=== PATIENT | male | born 1955 | race African-American/Black ===

== ENCOUNTER 2019-03-06 18:40 | Emergency (ER) | payer MEDICAID ==
[~2019-03-06] VITALS: Ht 185.4 cm; Wt 135.0 kg
[~2019-03-06 18:40] MED LIST: ASPI-1497 PO
[2019-03-06 23:29] LABS: BASOPHILS % 1.4 % (0.0-2.0); CHLORIDE 107 mEq/L (98-107); EOSINOPHILS % 2.6 % (0.0-5.0); HEMATOCRIT. 42.8 % (42.0-52.0); HEMOGLOBIN. 14.6 g/dL (14.0-18.0); LYMPHOCYTES % 26.9 % (20.0-50.0); MEAN CORPUSCULAR HEMOGLOBIN 33.3 pg (28.0-32.0); MEAN CORPUSCULAR VOLUME 97.9 fL (80.0-94.0); MEAN PLATELET VOLUME 7.8 fl (7.4-10.4); MONOCYTES % 11.5 % (2.0-8.0); NEUTROPHILS % 57.6 % (40.0-76.0); PLATELET 222 x1000/uL (130-400); RED BLOOD CELL COUNT 4.37 mill/uL (4.7-6.1); RED CELL DISTRIBUTION WIDTH 14.7 % (11.6-14.6)
[2019-03-07] MEDS ORDERED: FUROSEMIDE 40MG TABLET PO NR (00:30)
[2019-03-07] MEDS ORDERED: LABETALOL HCL 20MG/4ML CARPUJECT IV ONE (00:30)
[2019-03-07] MEDS ORDERED: LABETALOL 5MG/ML SYR 20 MG/4 ML SYRINGE IV NR (00:45)
[2019-03-07] MEDS ORDERED: IOHEXOL-350 100 ML BOTTLE ONE (04:53)
[2019-03-07 06:00] VITALS: BP 166/110
== END 2019-03-07 06:09 | disposition left against medical advice (07) ==
LOC: ER 18:40 → EDBEDREQTM 03-07 04:12 → EDBEDREQ 03-07 04:12 → ER 03-07 06:09 → CANBEDREQ 03-07 06:57
DX: I11.0 Hypertensive heart disease with heart failure (principal); I50.9 Heart failure, unspecified; J44.9 Chronic obstructive pulmonary disease, unspecified; F12.10 Cannabis abuse, uncomplicated; F17.200 Nicotine dependence, unspecified, uncomplicated; Z79.82 Long term (current) use of aspirin
CPT/HCPCS: 36415; 71045; 71275; 74174; 80053; 83880; 84484; 85025; 93005; 96374; 99284; J3490; Q9967; Z7610

== ENCOUNTER 2020-01-13 12:54 | Emergency (ER) | payer MEDICAID ==
[~2020-01-13] VITALS: Ht 185.4 cm; Wt 131.0 kg
[2020-01-13 16:33] LABS: HEMATOCRIT. 44.1 % (42.0-52.0); HEMOGLOBIN. 15.1 g/dL (14.0-18.0); LYMPHOCYTES % 28.4 % (20.0-50.0); MEAN CORPUSCULAR VOLUME 96.6 fL (80.0-94.0); MEAN PLATELET VOLUME 8.1 fl (7.4-10.4); MONOCYTES % 9.5 % (2.0-8.0); NEUTROPHILS % 56.1 % (40.0-76.0); PLATELET 214 x1000/uL (130-400); RED BLOOD CELL COUNT 4.56 mill/uL (4.7-6.1); RED CELL DISTRIBUTION WIDTH 14.6 % (11.6-14.6)
[2020-01-13 16:40] LABS: CHLORIDE 104 mEq/L (98-107)
[2020-01-13 16:50] VITALS: BP 181/107
[2020-01-13] MEDS ORDERED: HEPARIN 25,000 UNITS PREMIX 250 ML IV SCH (17:00)
[2020-01-13] MEDS ORDERED: ASPIRIN 81MG TABLET PO ONE (17:15)
== END 2020-01-13 17:00 | disposition left against medical advice (07) ==
LOC: ER 12:54
DX: I73.9 Peripheral vascular disease, unspecified (principal); F12.10 Cannabis abuse, uncomplicated; I11.0 Hypertensive heart disease with heart failure; I50.9 Heart failure, unspecified; J44.1 Chronic obstructive pulmonary disease with (acute) exacerbation
CPT/HCPCS: 36415; 80053; 83735; 83880; 85025; 93970; 99284

== ENCOUNTER 2020-01-15 16:44 | Emergency (ER) | payer MEDICAID ==
[~2020-01-15] VITALS: Ht 188 cm; Wt 127.0 kg
[2020-01-15 18:09] LABS: BASOPHILS % 0.8 % (0.0-2.0); EOSINOPHILS % 5.2 % (0.0-5.0); HEMATOCRIT. 44.8 % (42.0-52.0); HEMOGLOBIN. 15.2 g/dL (14.0-18.0); LYMPHOCYTES % 27.9 % (20.0-50.0); MEAN CORPUSCULAR HEMOGLOBIN 32.7 pg (28.0-32.0); MEAN CORPUSCULAR VOLUME 96.5 fL (80.0-94.0); MEAN PLATELET VOLUME 7.7 fl (7.4-10.4); MONOCYTES % 9.7 % (2.0-8.0); NEUTROPHILS % 56.4 % (40.0-76.0); PLATELET 257 x1000/uL (130-400); RED BLOOD CELL COUNT 4.64 mill/uL (4.7-6.1); RED CELL DISTRIBUTION WIDTH 14.7 % (11.6-14.6)
[2020-01-15 18:14] LABS: CHLORIDE 106 mEq/L (98-107)
[2020-01-15 18:29] LABS: INR 1.1; PROTHROMBIN TIME 11.4 sec (9.6-11.0)
[2020-01-15] MEDS ORDERED: HEPARIN 25,000 UNITS PREMIX 250 ML IV PRN (20:45)
[2020-01-15] MEDS ORDERED: HEPARIN 5000 UNITS/ML VIAL IV SCH (20:45)
[2020-01-15] MEDS ORDERED: HEPARIN 5000 UNITS/ML VIAL IV PRN ×4 (20:45→21:56)
[2020-01-15] MEDS ORDERED: IOHEXOL-350 100 ML BOTTLE ONE (23:12)
[2020-01-16] MEDS ORDERED: DILTIAZEM HCL 120MG CAPSULE CD 24HR PO ONE (04:45)
[2020-01-16 08:00] VITALS: BP 156/101
== END 2020-01-16 09:08 | disposition short-term general hospital (02) ==
LOC: ER 16:44 → CANRESERV 01-16 08:56 → ENRESERV 01-16 08:56 → ER 01-16 09:08 → CANBEDREQ 01-16 09:17
DX: I77.1 Stricture of artery (principal); I11.0 Hypertensive heart disease with heart failure; I50.9 Heart failure, unspecified; I48.91 Unspecified atrial fibrillation; J44.9 Chronic obstructive pulmonary disease, unspecified; E78.00 Pure hypercholesterolemia, unspecified; F12.10 Cannabis abuse, uncomplicated; Z79.82 Long term (current) use of aspirin
CPT/HCPCS: 36415; 71045; 72191; 73706; 80053; 84484; 85025; 85610; 85730; 93005; 93923; 96365; 96375; 99285; J1644; Q9967

== ENCOUNTER 2020-05-02 08:54 | Emergency (ER) | payer MEDICAID ==
[~2020-05-02] VITALS: Ht 185.4 cm; Wt 134.0 kg
[2020-05-02] MEDS ORDERED: FUROSEMIDE 40MG/4ML VIAL IVP ONE (09:30)
[2020-05-02 09:49] LABS: BASOPHILS % 0.7 % (0.0-2.0); EOSINOPHILS % 1.4 % (0.0-5.0); HEMATOCRIT. 43.8 % (42.0-52.0); HEMOGLOBIN. 14.4 g/dL (14.0-18.0); LYMPHOCYTES % 23.7 % (20.0-50.0); MEAN CORPUSCULAR VOLUME 100.1 fL (80.0-94.0); MEAN PLATELET VOLUME 8.5 fl (7.4-10.4); MONOCYTES % 8.9 % (2.0-8.0); NEUTROPHILS % 65.3 % (40.0-76.0); PLATELET 170 x1000/uL (130-400); RED BLOOD CELL COUNT 4.37 mill/uL (4.7-6.1); RED CELL DISTRIBUTION WIDTH 16.9 % (11.6-14.6)
[2020-05-02 10:22] LABS: INR 1.1; PROTHROMBIN TIME 11.9 sec (9.6-11.0)
[2020-05-02 11:25] LABS: CHLORIDE 108 mEq/L (98-107)
[2020-05-02 12:30] VITALS: BP 193/111
== END 2020-05-02 12:40 | disposition left against medical advice (07) ==
LOC: ER 09:28 → CANBEDREQ 12:26 → ER 12:40
DX: I11.0 Hypertensive heart disease with heart failure (principal); I50.9 Heart failure, unspecified; F17.290 Nicotine dependence, other tobacco product, uncomplicated; F12.10 Cannabis abuse, uncomplicated; Z88.6 Allergy status to analgesic agent
CPT/HCPCS: 36415; 71045; 80053; 83880; 84484; 85025; 85610; 93005; 96374; 99284; J1940

== ENCOUNTER 2020-05-10 15:47 | Emergency (ER) | payer MEDICAID ==
[~2020-05-10] VITALS: Ht 188 cm; Wt 127.0 kg
[2020-05-10] MEDS: ONDANSETRON HCL 4MG/2ML INJ IV STA ×2 (16:52→18:54)
[2020-05-10 17:43] LABS: EOSINOPHILS % 1.5 % (0.0-5.0); HEMOGLOBIN. 16.4 g/dL (14.0-18.0); LYMPHOCYTES % 24.4 % (20.0-50.0); MEAN CORPUSCULAR HEMOGLOBIN 33.2 pg (28.0-32.0); MEAN CORPUSCULAR VOLUME 99.3 fL (80.0-94.0); MEAN PLATELET VOLUME 8.5 fl (7.4-10.4); MONOCYTES % 9.5 % (2.0-8.0); NEUTROPHILS % 63.6 % (40.0-76.0); PLATELET 196 x1000/uL (130-400); RED BLOOD CELL COUNT 4.93 mill/uL (4.7-6.1)
[2020-05-10 17:45] LABS: CHLORIDE 103 mEq/L (98-107)
[2020-05-10 17:50] LABS: CLARITY URINE CLEAR (CLEAR); COLOR URINE DARK YELLOW (YELLOW); KETONES URINE TRACE (NEGATIVE); LEUKOCYTE ESTERASE URINE TRACE (NEGATIVE); NITRITE URINE NEGATIVE (NEGATIVE); OCCULT BLOOD URINE NEGATIVE (NEGATIVE); PROTEIN URINE 1+ (NEGATIVE); SPECIFIC GRAVITY URINE 1.029 (1.005-1.030)
[2020-05-10 17:52] LABS: INR 1.1; PROTHROMBIN TIME 11.6 sec (9.6-11.0)
[2020-05-10] MEDS: SODIUM CHLORIDE 0.9% 1,000 ML IV ONE ×2 (18:49→18:54)
[2020-05-10] MEDS: KETOROLAC 30MG/ML VIAL IV STA ×2 (18:49→18:54)
[2020-05-10] MEDS ORDERED: ONDANSETRON 4MG ODT PO ONE (19:00)
[2020-05-10] MEDS ORDERED: KETOROLAC 60MG/2ML VIAL IM ONE (19:00)
[2020-05-10] MEDS ORDERED: VISCOUS LIDOCAINE 2% 15 ML UDC PO STA (20:25)
[2020-05-10] MEDS ORDERED: MAGNESIUM/ALUMINUM HYDROXIDE/SIMETHICONE 30ML UDC PO STA (20:25)
[2020-05-10] MEDS ORDERED: DICYCLOMINE 10 MG/5 ML ORAL SYR PO STA (20:25)
[2020-05-10] MEDS ORDERED: OMEP40CA12 MT (20:26)
[2020-05-10 20:44] VITALS: BP 159/91
== END 2020-05-10 21:03 | disposition home or self-care (01) ==
LOC: ER 15:47
DX: R10.33 Periumbilical pain (principal); I11.0 Hypertensive heart disease with heart failure; I50.9 Heart failure, unspecified; F12.10 Cannabis abuse, uncomplicated; Z79.82 Long term (current) use of aspirin
CPT/HCPCS: 36415; 74176; 80053; 81003; 83690; 85025; 85610; 93005; 96372; 99285; C1893; J1885; J2405; J7030; Q0162; Z7610

== ENCOUNTER 2020-09-14 07:12 | Emergency (ER) | payer MEDICAID ==
[~2020-09-14] VITALS: Ht 182.9 cm; Wt 122.0 kg
[~2020-09-14 07:12] MED LIST changes: +OMEP40CA12 MT
[2020-09-14] MEDS ORDERED: ASPIRIN 81MG TABLET PO ONE (08:00)
[2020-09-14 08:24] LABS: BASOPHILS % 0.8 % (0.0-2.0); EOSINOPHILS % 2.3 % (0.0-5.0); HEMATOCRIT. 40.9 % (42.0-52.0); HEMOGLOBIN. 13.7 g/dL (14.0-18.0); LYMPHOCYTES % 18.9 % (20.0-50.0); MEAN CORPUSCULAR HEMOGLOBIN 33.5 pg (28.0-32.0); MEAN PLATELET VOLUME 7.4 fl (7.4-10.4); MONOCYTES % 8.7 % (2.0-8.0); NEUTROPHILS % 69.3 % (40.0-76.0); PLATELET 221 x1000/uL (130-400); RED BLOOD CELL COUNT 4.09 mill/uL (4.7-6.1); RED CELL DISTRIBUTION WIDTH 15.2 % (11.6-14.6)
[2020-09-14 08:31] LABS: CHLORIDE 108 mEq/L (98-107)
[2020-09-14 08:36] LABS: ETHANOL BLOOD < 10 mg/dL
[2020-09-14] MEDS ORDERED: FUROSEMIDE 40MG/4ML VIAL IVP ONE (09:00)
[2020-09-14 09:21] VITALS: BP 155/99
== END 2020-09-14 11:34 | disposition left against medical advice (07) ==
LOC: ER 07:12 → CANBEDREQ 11:17 → ER 11:34
DX: I11.0 Hypertensive heart disease with heart failure (principal); I50.9 Heart failure, unspecified; F12.10 Cannabis abuse, uncomplicated
CPT/HCPCS: 36415; 71045; 80053; 80320; 83880; 84484; 85025; 93005; 96374; 99285; J1940; Z7610; G0480

== ENCOUNTER 2020-10-17 11:03 | Emergency (ER) | payer MEDICAID ==
[~2020-10-17] VITALS: Ht 185.4 cm; Wt 123.0 kg
[~2020-10-17 11:03] MED LIST changes: -OMEP40CA12 MT; +OMEP40CA20 MT
[2020-10-17 13:18] LABS: BASOPHILS % 1.4 % (0.0-2.0); EOSINOPHILS % 3.2 % (0.0-5.0); HEMATOCRIT. 39.5 % (42.0-52.0); HEMOGLOBIN. 13.3 g/dL (14.0-18.0); LYMPHOCYTES % 25.6 % (20.0-50.0); MEAN CORPUSCULAR HEMOGLOBIN 32.9 pg (28.0-32.0); MEAN CORPUSCULAR VOLUME 97.7 fL (80.0-94.0); MEAN PLATELET VOLUME 7.5 fl (7.4-10.4); MONOCYTES % 10.9 % (2.0-8.0); NEUTROPHILS % 58.9 % (40.0-76.0); PLATELET 223 x1000/uL (130-400); RED BLOOD CELL COUNT 4.04 mill/uL (4.7-6.1); RED CELL DISTRIBUTION WIDTH 14.6 % (11.6-14.6)
[2020-10-17 13:25] LABS: CHLORIDE 108 mEq/L (98-107)
[2020-10-17] MEDS ORDERED: FUROSEMIDE 20MG/2ML VIAL IVP ONE ×2 (14:45→15:15)
[2020-10-17] MEDS ORDERED: HYDRALAZINE 20MG/ML VIAL IV ONE ×2 (14:45→15:15)
[2020-10-17] MEDS ORDERED: MORPHINE SULFATE 4 MG/ML CPJ (NOT FOR IM USE) IV ONE (15:15)
[2020-10-17 17:43] VITALS: BP 185/136
== END 2020-10-17 18:50 | disposition home or self-care (01) ==
LOC: ER 11:15
DX: R06.02 Shortness of breath (principal); R05 Cough; I11.0 Hypertensive heart disease with heart failure; I50.9 Heart failure, unspecified; Z20.822 Contact with and (suspected) exposure to COVID-19
CPT/HCPCS: 36415; 71045; 80053; 83880; 84484; 85025; 87426; 93005; 96374; 96375; 99285; J0360; J1940; J2270; Z7610

== ENCOUNTER 2021-01-02 18:25 | Emergency (ER) | payer MEDICAID ==
[~2021-01-02] VITALS: Ht 175.3 cm; Wt 132.0 kg
[2021-01-02 18:30] VITALS: BP 144/83
[2021-01-02] MEDS ORDERED: KETOROLAC 60MG/2ML VIAL IM STA (22:13)
[2021-01-02 23:54] LABS: BASOPHILS % 1.1 % (0.0-2.0); EOSINOPHILS % 3.1 % (0.0-5.0); HEMATOCRIT. 40.2 % (42.0-52.0); HEMOGLOBIN. 13.5 g/dL (14.0-18.0); LYMPHOCYTES % 33.1 % (20.0-50.0); MEAN CORPUSCULAR HEMOGLOBIN 32.8 pg (28.0-32.0); MEAN CORPUSCULAR VOLUME 97.9 fL (80.0-94.0); MEAN PLATELET VOLUME 7.6 fl (7.4-10.4); MONOCYTES % 8.2 % (2.0-8.0); NEUTROPHILS % 54.5 % (40.0-76.0); PLATELET 215 x1000/uL (130-400); RED BLOOD CELL COUNT 4.11 mill/uL (4.7-6.1); RED CELL DISTRIBUTION WIDTH 15.7 % (11.6-14.6)
[2021-01-03 00:01] LABS: CHLORIDE 108 mEq/L (98-107)
== END 2021-01-03 00:38 | disposition home or self-care (01) ==
LOC: ER 18:25
DX: R25.2 Cramp and spasm (principal); I11.0 Hypertensive heart disease with heart failure; I50.9 Heart failure, unspecified; Z86.718 Personal history of other venous thrombosis and embolism; Z79.01 Long term (current) use of anticoagulants; Z79.899 Other long term (current) drug therapy
CPT/HCPCS: 36415; 73590; 80053; 85025; 93971; 96372; 99285; J1885

== ENCOUNTER 2021-02-20 15:57 | Emergency (ER) | payer MEDICAID ==
[~2021-02-20] VITALS: Ht 185.4 cm; Wt 130.0 kg
[2021-02-20] MEDS ORDERED: VANCOMYCIN 1 G PREMIX 200 ML IV ONE (16:45)
[2021-02-20] MEDS ORDERED: HYDROCODONE/ACETAMINOPHEN 5/325MG TABLET PO ONE (16:45)
[2021-02-20] MEDS ORDERED: CEFTRIAXONE 1 G PREMIX 50 ML IV ONE (16:45)
[2021-02-20 19:09] LABS: BASOPHILS % 0.6 % (0.0-2.0); HEMATOCRIT. 41.7 % (42.0-52.0); HEMOGLOBIN. 13.9 g/dL (14.0-18.0); MEAN CORPUSCULAR HEMOGLOBIN 32.8 pg (28.0-32.0); MEAN CORPUSCULAR VOLUME 98.3 fL (80.0-94.0); NEUTROPHILS % 58.4 % (40.0-76.0); RED BLOOD CELL COUNT 4.25 mill/uL (4.7-6.1); RED CELL DISTRIBUTION WIDTH 15.4 % (11.6-14.6)
[2021-02-20 19:16] LABS: CHLORIDE 107 mEq/L (98-107)
[2021-02-20 19:19] LABS: PROTHROMBIN TIME 10.6 sec (9.6-11.0)
[2021-02-20 19:47] LABS: MEAN PLATELET VOLUME 9.4 fl (7.4-10.4); PLATELET 191 x1000/uL (130-400)
[2021-02-20] MEDS ORDERED: ONDANSETRON HCL 4MG/2ML INJ IV STA (20:55)
[2021-02-20] MEDS ORDERED: MORPHINE SULFATE 4 MG/ML CPJ (NOT FOR IM USE) IV STA (20:55)
[2021-02-20 22:20] VITALS: BP 144/88
[2021-02-20] MEDS ORDERED: IOHEXOL-350 100 ML BOTTLE ONE (23:25)
== END 2021-02-20 23:08 | disposition short-term general hospital (02) ==
LOC: ER 15:57
DX: S92.812A Other fracture of left foot, initial encounter for closed fracture (principal); X58.XXXA Exposure to other specified factors, initial encounter; Y93.89 Activity, other specified; Y92.89 Other specified places as the place of occurrence of the external cause; Y99.8 Other external cause status; N28.9 Disorder of kidney and ureter, unspecified; I77.1 Stricture of artery; L03.116 Cellulitis of left lower limb; I11.0 Hypertensive heart disease with heart failure; I50.9 Heart failure, unspecified; Z20.822 Contact with and (suspected) exposure to COVID-19
CPT/HCPCS: 36415; 71045; 72191; 73630; 73706; 80053; 83605; 83880; 84484; 85025; 85610; 87040; 87426; 93005; 93970; 96365; 96366; 96375; 99291; J0696; J2270; J2405; Q9967; 85651

== ENCOUNTER 2021-04-02 13:39 | Emergency (ER) | payer MEDICAID ==
[~2021-04-02] VITALS: Ht 185.4 cm; Wt 124.0 kg
[2021-04-02] MEDS ORDERED: HYDROCODONE/ACETAMINOPHEN 5/325MG TABLET PO ONE (14:30)
[2021-04-02 15:44] LABS: HEMATOCRIT. 41.8 % (42.0-52.0); HEMOGLOBIN. 13.9 g/dL (14.0-18.0); LYMPHOCYTES % 27.5 % (20.0-50.0); MEAN CORPUSCULAR HEMOGLOBIN 32.5 pg (28.0-32.0); MEAN CORPUSCULAR VOLUME 97.4 fL (80.0-94.0); MEAN PLATELET VOLUME 7.8 fl (7.4-10.4); MONOCYTES % 8.6 % (2.0-8.0); NEUTROPHILS % 59.9 % (40.0-76.0); PLATELET 250 x1000/uL (130-400); RED BLOOD CELL COUNT 4.29 mill/uL (4.7-6.1); RED CELL DISTRIBUTION WIDTH 15.1 % (11.6-14.6)
[2021-04-02 15:52] LABS: CHLORIDE 106 mEq/L (98-107)
[2021-04-02] MEDS ORDERED: VANCOMYCIN 1G PREMIX 200 ML IV SCH (17:15)
[2021-04-02] MEDS ORDERED: CEFTRIAXONE 1 G PREMIX 50 ML IV ONE (17:15)
[2021-04-02] MEDS: VANCOMYCIN 1GM PMX (XELLIA) 200 ML IV NR ×2 (18:27→20:53)
[2021-04-02 20:54] VITALS: BP 145/79
== END 2021-04-02 20:54 | disposition left against medical advice (07) ==
LOC: ER 13:48
DX: L97.519 Non-pressure chronic ulcer of other part of right foot with unspecified severity (principal); I77.1 Stricture of artery; I11.0 Hypertensive heart disease with heart failure; I50.9 Heart failure, unspecified
CPT/HCPCS: 36415; 73630; 80053; 85025; 85651; 86140; 93922; 93971; 96365; 96367; 99285; J0696; J3370

== ENCOUNTER 2021-04-04 13:20 | Emergency (ER) | payer MEDICAID ==
[~2021-04-04] VITALS: Ht 185.4 cm; Wt 124.7 kg
[2021-04-04] MEDS ORDERED: HEPARIN 5000 UNITS/ML VIAL IV SCH (15:45)
[2021-04-04] MEDS ORDERED: HEPARIN 25,000 UNITS PREMIX 250 ML IV PRN (15:45)
[2021-04-04] MEDS ORDERED: VANCOMYCIN 1G PREMIX 200 ML IV SCH (15:45)
[2021-04-04] MEDS ORDERED: CEFTRIAXONE 1 G PREMIX 50 ML IV ONE (15:45)
[2021-04-04] MEDS ORDERED: VANCOMYCIN 1GM PMX (XELLIA) 200 ML IV NR (16:15)
[2021-04-04 17:34] LABS: BASOPHILS % 0.8 % (0.0-2.0); HEMATOCRIT. 40.1 % (42.0-52.0); HEMOGLOBIN. 13.6 g/dL (14.0-18.0); LYMPHOCYTES % 23.3 % (20.0-50.0); MEAN CORPUSCULAR HEMOGLOBIN 32.8 pg (28.0-32.0); MEAN CORPUSCULAR VOLUME 96.6 fL (80.0-94.0); MEAN PLATELET VOLUME 7.7 fl (7.4-10.4); MONOCYTES % 10.3 % (2.0-8.0); NEUTROPHILS % 63.6 % (40.0-76.0); PLATELET 257 x1000/uL (130-400); RED BLOOD CELL COUNT 4.15 mill/uL (4.7-6.1); RED CELL DISTRIBUTION WIDTH 14.8 % (11.6-14.6)
[2021-04-04 17:42] LABS: CHLORIDE 109 mEq/L (98-107)
[2021-04-04 17:50] LABS: PARTIAL THROMBOPLASTIN TIME 27.4 sec (23.4-31.0); PROTHROMBIN TIME 11.1 sec (9.6-11.0)
[2021-04-04] MEDS ORDERED: HEPARIN BOLUS PRN aPTT 37-44 IV (18:15)
[2021-04-04] MEDS ORDERED: HEPARIN BOLUS PRN aPTT <36 IV (18:15)
[2021-04-04] MEDS ORDERED: HEPARIN 25,000 UNITS PREMIX 250 ML IV SCH (18:15)
[2021-04-04] MEDS ORDERED: HEPARIN 80 UNITS/KG BOLUS IV NR (18:30)
[2021-04-04] MEDS ORDERED: MORPHINE SULFATE 4 MG/ML CPJ (NOT FOR IM USE) IV ONE (20:45)
[2021-04-04 20:54] VITALS: BP 124/86
== END 2021-04-05 15:40 | disposition short-term general hospital (02) ==
LOC: ER 13:20
DX: I11.0 Hypertensive heart disease with heart failure (principal); I50.9 Heart failure, unspecified; M79.671 Pain in right foot
CPT/HCPCS: 36415; 80053; 85025; 85610; 85730; 87040; 96365; 96366; 96367; 96368; 96375; 99284; J0696; J1644; J2270; J3370